=== PATIENT | male | born 1985 | race Caucasian/White ===

== ENCOUNTER 2023-05-17 11:23 | Outpatient (CLI) | payer OTHER, SELFPAY | END 2023-05-17 11:24 | disposition home or self-care (01) | LOC: LONREF 11:25 | PROVIDERS: PCP Family Medicine; Visit Provider Family Medicine | DX: Z13.6 Encounter for screening for cardiovascular disorders (principal) | CPT/HCPCS: 80061 ==

== ENCOUNTER 2024-03-18 18:41 | Emergency (ER) | payer OTHER, SELFPAY ==
[2024-03-18 18:54] VITALS: BP 118/106; PULSE 84; RESP 18; TEMP 36.8; O2SAT 97; BMI 22.6
--- NOTE | 2024-03-18 19:11 | CRLHL7_ITS ---
For Patients: As a result of the Century Cures Act, medical imaging exams and procedure reports are released immediately into your electronic medical record. You may view this report before your referring provider. If you have questions, please contact your health care provider. INDICATION: Punched wall, 5TH metacarpal, hand injury TECHNIQUE: Hand radiograph 3 views right COMPARISON: None FINDINGS: Bone: There is a fracture of the distal 5th metacarpal present with the distal fragment angulated volarly by 63 degrees. Evaluation of the digits on the lateral examination is moderately degraded due to overlapped digit positioning. Joint: The carpal and metacarpal-phalangeal joints are unremarkable in appearance. The interphalangeal joints are normal in appearance. Soft tissue: Unremarkable. No radiopaque foreign bodies are seen. IMPRESSION: 1. There is a fracture of the distal 5th metacarpal present with the distal fragment angulated volarly by 63 degrees. Dictated by Brent Sam MD @ 03/18/2024 7:55:40 PM Dictated by: Brent Sam MD @ 03/18/2024 19:55:46 (Electronically Signed)
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
== END 2024-03-18 20:04 | disposition home or self-care (01) ==
PROVIDERS: Emergency Provider Emergency Medicine; PCP Family Medicine
DX: S62.306A Unspecified fracture of fifth metacarpal bone, right hand, initial encounter for closed fracture (principal); W22.8XXA Striking against or struck by other objects, initial encounter
CPT/HCPCS: 29125; 73130; 99283; 99284

== ENCOUNTER 2024-04-01 12:19 | Day surgery (SDC) | payer OTHER, SELFPAY ==
[2024-04-01] VITALS (8 sets, daily range): BP systolic 113–126; BP diastolic 30–82; PULSE 59–80; RESP 16; TEMP 36.3–37.1; O2SAT 96–100; BMI 23.2
[2024-04-01] MEDS: SODIUM CHLORIDE 0.9 % (FLUSH) 10 ML SYRINGE IVF (13:02)
[2024-04-01] MEDS: LACTATED RINGERS 1000 ML 1,000 ML 100 ML IV (13:02)
[2024-04-01] MEDS: MIDAZOLAM HCL 1 MG/ML inj IVP (13:59)
[2024-04-01] MEDS: fentaNYL 100 MCG/2 ML inj IVP (13:59)
--- NOTE | 2024-04-01 14:08 | SUR.PREOP ---
TIME?OUT:?1359 PT/RN/MDA?VERIFICATION?OF?SURGICAL?SITE,?PROCEDURE,?AND?CONSENT OBTAINED?PRIOR?TO?INVASIVE?PROCEDURE.
--- NOTE | 2024-04-01 14:15 | CRLHL7_ITS ---
For Patients: As a result of the Cures Act, medical imaging exams and procedure reports are released immediately into your electronic medical record. You may view this report before your referring provider. If you have questions, please contact your health care provider. INDICATION: ORIF. FINDINGS: Three views of the right hand show surgical pin placement in the right 5th on metacarpal. 1 minute of fluoro time. Dictated by Marc Mortensen MD @ 04/03/2024 10:34:57 AM (Electronically Signed)
[2024-04-01] MEDS: CEFAZOLIN 2 GM in 0.9 % SODIUM CHLORIDE Mini-bag 100 ML IVPB (14:20)
--- NOTE | 2024-04-01 14:21 | W.PM.H&PU ---
History & Physical Update History & Physical Update H&P Reviewed and patient assessed: No changes noted
--- NOTE | 2024-04-01 15:03 | W.PM.NB ---
Nerve Block Nerve Block Time Seen by Provider: 14:06 Date Seen: 04/01/24 Type of block requested by surgeon for post-operative analgesia: axillary Side: right Time out performed: Yes Verification of patient name: Yes Verification of date of : Yes Site marking: site marked Name of person performing procedure: Todd Continuous monitoring Was continuous monitoring of O2 sat, B/P, cardiac exercise specialist, recorded every 15 minutes?: Yes Procedure Checklist: sterile prep, needles and gloves Ultrasound guided. Images saved: Yes Medications given in 5ml increments after negative aspiration: Ropivicaine %: 0.5 mL: 30 Needle gauge: 22 Patient tolerated procedure well: Yes Additional comments: Needle noted adjacent to nerve Block Charges Block Charge (with Pro Fee): Brachial Plexus Use of Ultrasound Machine for Block: Yes- US Guidance/pain block
--- NOTE | 2024-04-01 15:04 | W.ANESCHARGE ---
Anesthesia Charges Start Date/Time Anesthesia Start Date: 04/01/24 Anesthesia Start Time: 14:12 Stop Date/Time Anesthesia Stop Date: 04/01/24 Anesthesia Stop Time: 15:44
--- NOTE | 2024-04-01 15:32 | SUR.OPER ---
PRE-OP: HAND/FINGERS SWOLLEN & ECCHYMOTIC
--- NOTE | 2024-04-01 15:33 | PM.ORPRC ---
Procedure Note Date of procedure: 04/01/24 Procedure: PREOPERATIVE DIAGNOSES: 1. Right 5th metacarpal neck fracture, closed, acute, substantially displaced, shortened, and slightly malrotated POSTOPERATIVE DIAGNOSES: 1. Right 5th metacarpal neck fracture, closed, acute, substantially displaced, shortened, and slightly malrotated NAME OF OPERATION: 1. Right 5th metacarpal open reduction internal fixation 2. 29100 - intraoperative fluoroscopy up to 1 hour. SURGEON: Slim Kaye MD SPAGHETTI MACHINE OPERATOR: Vargas DALE ANESTHESIA: Axillary block + MAC IMPLANTS: Acumed INnate 4.5 mm fully-threaded metacarpal screw (x1) TOURNIQUET: 30 min at 225 torr. INDICATIONS: The patient is a pleasant, 39-year-old male who sustained a right 5th metacarpal fracture recently. They were evaluated at a medical facility. X-rays revealed a metacarpal fracture that was shortened and displaced. Closed reduction with manipulation was attempted in the clinic setting but unfortunately that the fracture was not able to be fully reduced/stabilized. Given the instability and significant displacement, it was felt that there may be some tissue interposed blocking reduction and that surgery for ORIF would be prudent. FINDINGS: Right closed, displaced, shortened 5th metacarpal fracture. PROCEDURE: Following a thorough discussion of risks, benefits, and alternatives, consent was obtained and the operative extremity was marked. The patient was brought to the operating room and placed supine on the operating table. Induction of anesthesia was achieved. Appropriate time out was performed identifying proper patient, site and procedure. 2 g IV Ancef was administered within 1 hour of incision preoperatively. The right upper extremity was prepped and draped in the appropriate sterile fashion using ChloraPrep. Initially, a closed reduction was attempted or multiple tries. Despite being able to mobilize the fracture, it would not reduce. It was felt that indeed tissue was interposed. Thus, an open reduction was performed by making an incision along the dorsal aspect of the 5th metacarpal after tourniquet was inflated (forearm tourniquet at 225 torr). Sharp incision through skin and blunt dissection to the subcutaneous tissue allowed identification of the extensor tendons. These were protected. The bone was indeed identified and the fracture encountered. There was significant tissue interposed blocking the reduction. The tissue was removed and reduction was then achieved. A reduction clamp was utilized to hold the fracture reduced. 4.5 mm INnate screw was measured, drilled, and placed. There was very tight fit through the isthmus requiring classic tapping type of technique with the screw (unscrewing 2 turns followed by recent growing back in repetitively). At this stage, the wound was thoroughly irrigated with normal saline. Closure performed with 2-0 Stratafix and skin glue. Tourniquet deflated, ulnar gutter soft splint/dressing was applied, and the patient woken from anesthesia and transferred the PACU in stable condition. PLAN: 1. Elevate operative extremity. 2. Ice, acetominphen or ibuprofen PRN. 3. [place] for pain as needed. 4. Follow up with PA visit in 7-10 days for splint removal, wound check, and no further bracing. Gentle range of motion, gripping, pinching as tolerated based on pain. Then follow-up at the 3.5-4 week trinity from surgery with me with repeat x-rays right hand-three views.
--- NOTE | 2024-04-01 16:32 | W.ANESCHARGE ---
Anesthesia Charges Start Date/Time Anesthesia Start Date: 04/01/24 Anesthesia Start Time: 14:12 Stop Date/Time Anesthesia Stop Date: 04/01/24 Anesthesia Stop Time: 15:44
== END 2024-04-01 16:57 | disposition home or self-care (01) ==
PROVIDERS: PCP Family Medicine; Visit Provider Orthopaedic Surgery Sports Medicine
PROC: (CPT 26615; principal; 2024-04-01 14:15)
DX: S62.336A Displaced fracture of neck of fifth metacarpal bone, right hand, initial encounter for closed fracture (principal); G89.18 Other acute postprocedural pain
CPT/HCPCS: 26615; 01830; 64415; 73130; 76942; A4580; C1713; J0690; J1100; J2250; J2405; J2704; J2795; J3010; J7120

== ENCOUNTER 2024-05-13 09:27 | Outpatient (RCR) | payer OTHER, SELFPAY ==
--- NOTE | 2024-05-13 12:40 | OT.OPOE ---
OT Outpatient Ortho Eval OT Outpatient Ortho Eval* Start: 05/13/24 10:08 Freq: Status: Active Protocol: Document 05/13/24 10:08 KIKI (Rec: 05/13/24 12:38 GABOOscar [id number]) E-signed By Do Gilmore, OTR/L, CLT OT OP Ortho Eval Details Complexity Complexity Low Insurance Information Other Insurance Financial Assistance Screening Outpatient History/Precautions Current Condition/Medical Diagnosis Referring Provider Claudio Do PA-C Medical Diagnoses History of open reduction and internal fixation (ORIF) procedure Z98.890 Other specified postprocedural states PO 04/01/24 Right 5th metacarpal neck fracture, closed, acute, substantially displaced, shortened and lightly malrotated Treatment Diagnosis Localized Edema, R60.0 Stiffness of R hand (small finger) M25.641 Date of Onset 04/01/2024 Other Conditions History of open reduction and internal fixation (ORIF) procedure (Acute 04/01/24) 1 month postop right 5th metacarpal open reduction internal fixation (04/01/2024, Dr. Kaye) Z98.890 - Other specified postprocedural states (ICD-10) Pre-op examination (Acute) Z01.818 - Encounter for other preprocedural examination (ICD -10) Anxiety (Acute) F41.9 - Anxiety disorder, unspecified (ICD-10) Chronic back pain (Acute) M54.9 - Dorsalgia, unspecified (ICD-10) G89.29 - Other chronic pain ( ICD-10) Irritable bowel syndrome ( Acute 04/04/09) K58.9 - Irritable bowel syndrome without diarrhea (ICD -10) Dermatofibroma (Acute) D23.9 - Other benign neoplasm of skin, unspecified (ICD-10) Family history of diabetes mellitus (Acute) Z83.3 - Family history of diabetes mellitus (ICD-10) Medical/Functional History Medical History Reviewed Yes Prior Level of Function/Mobility 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 States he punched a wall hitting a stud. Immediate pain and deformity noted to his right ulnar aspect hand. Swelling ensued. Presented to ER that night where x-rays revealed fracture of the 5th metacarpal neck. No reduction performed. Placed in ulnar gutter splint and referred to Orthopedics. Patient than had surgery by Dr Gaby Kaye on 04/01/24 Right 5th metacarpal open reduction internal fixation with follow up appointments on 04/10/24 and 05/01/24. Next Ortho f/u is in two days 05/15/24. Of note: This will be a possible Eval only, patient does not have insurance and requested HEP with the possible no return visits. Left 1 more appointment on the schedule, as therapist wished for patient to see Ortho and see what updates they have. Therapist has reviewed all ortho notes and x-rays. Patient should do well working on his HEP, he was given business card with contact information should he have any questions. Pain Assessment Pain Pain No Goniometric Comments Goniometric Comments Goniometric Comments R hand (dominant) SMALL FINGER DIP: FULL AROM PIP: FULL AROM MCP: 58 degrees of active flexion with swelling that prevents full extension ( lacking 15 degrees from full extension) OT Objective Data Hand Hand Dominance Right Observations/Posture/Limb Appearance Objective Observations Right hand: Surgical wound healed, appropriate scar, no drainage, no erythema Demonstrates full composite fist Minimally tender to the neck of the 5th metacarpal No crepitus with 5th MCP joint motion Skin/Wounds/Edema Comments Swelling noted to the dorsum of the 5th metacarpal neck region, which inhibits his full extension measuring approximately 15? shy of full extension Sensation Sensation Assessment Summary Comments 2+ radial pulse, pink warm digits with brisk cap refill; intact dermatomes and myotomes distally including the radial , ulnar, and median nerve distributions Additional Information Objective Additional Information X-RAY: Impression: Stable appearing right 5th metacarpal distal metadiaphyseal fracture status post intramedullary screw placement. PA, Lateral, and Oblique views of the right small finger were obtained on 05/01/2024 from [facility], were ordered by a different physician, were reviewed by me today, and show overall well- aligned 5th metacarpal fracture. Fracture line is still evident. Interval intramedullary screw placement with stable appearing screw position compared to intraoperative fluoroscopic images. Screw appears less than 1 mm proud from the bone, but is likely still under the cartilage cap. OT Problems Problems Problems Decreased Strength,Decreased Range of Motion,Lifting, Gripping,Pinching Other Problems Writing,Opening Containers, Computer Patient Potential Excellent Assessment Assessment Assessment 39 year old male with injury to his right hand, 5th metacarpal (date of injury .) He is right-hand dominant. States he punched a wall hitting a stud. Immediate pain and deformity noted to his right ulnar aspect hand. Swelling ensued. Presented to ER that night where x-rays revealed fracture of the 5th metacarpal neck. No reduction performed. Placed in ulnar gutter splint and referred to Orthopedics. Patient than had surgery by Dr Gaby Kaye on 04/01/24 Right 5th metacarpal open reduction internal fixation with follow up appointments on 04/10/24 and 05/01/24. Next Ortho f/u is in two days 05/15/24. Of note: This will be a possible Eval only, patient does not have insurance and requested HEP with the possible no return visits. Left 1 more appointment on the schedule, as therapist wished for patient to see Ortho and see what updates they have. Therapist has reviewed all ortho notes and x-rays. Patient should do well working on his HEP, he was given business card with contact information should he have any questions. Occupational Therapy Treatment Plan - OP Potential Rehabilitation Potential Excellent Barriers Barriers to goal attainment None noted, patient asked great questions in session, was highly engaged and showed motivation towards making gains. Set Goals Goals Set with Patient Yes Goals Goals 1. Patient will increased AROM of the R (dominant) hand small finger (EVAL 05/13/24: 15-58 degrees) in order to resume work/ADL/IADL/leisure activities. 2. Patient will verbalize 3 activity modifications to decrease abusive/overloading of the muscles, joints & tendons. 3. Through active participation in skilled OT sessions, patient will maximize post-surgical wound healing to minimize functional /cosmetic sequelae of scarring . 4. Patient will accurately perform MLD to the R hand small finger/hand in order to reduce swelling/edema in order to increase comfort and functional use of the dominant Right Hand. Treatment Plan Treatment Plan Evaluation,Edema Control,Joint Mobilization,Manual Therapy, Wound Care/Scar Management, Therapeutic Exercise,Self Care /Home Management,Education Expected Frequency As Needed Expected Duration 8-10 Weeks Comment Summary Possible Eval only, patient does not have insurance and requested HEP with the possible no return visits Home Program Home Program Home Program Initiated Home Program Specifics Access Code: [email or web address] URL: [email or web address] Date: 05/13/2024 Prepared by: Do Gilmore Exercises - Hand PROM Finger Extension - 1 x daily - 7 x weekly - 3 sets - 10 reps - Seated Finger MP Extension AROM with Blocking - 1 x daily - 7 x weekly - 3 sets - 10 reps - Finger Spreading - 1 x daily - 7 x weekly - 3 sets - 10 reps - Finger Strengthening: Hook and Snow Plow in Putty - 1 x daily - 7 x weekly - 3 sets - 10 reps - Wrist Prayer Stretch at Table - 1 x daily - 7 x weekly - 3 sets - 10 reps Certification Certification Statement I Certify That: Therapy Services Provided, Therapy Plan Established, Therapy Plan Reviewed Certification Information Clinic ID # [id number] Initial Certification Date 05/13/24 Recertification Due Date 08/11/24 Provider Signature Required Yes Provider Signature Shows Agreement With POC & Medical Necessity Physician NPI Number Write NPI# Here Physician Comment/Change Comment or Changes Physician Signature & Date Requested Please Sign/Date Here
== END 2024-08-06 09:41 | disposition home or self-care (01) ==
PROVIDERS: PCP Family Medicine; Visit Provider Physician Assistant Surgical
DX: Z98.890 Other specified postprocedural states (principal); R60.0 Localized edema; M25.641 Stiffness of right hand, not elsewhere classified; Z51.89 Encounter for other specified aftercare
CPT/HCPCS: 97110; 97165; X5282